=== PATIENT | male | born 1960 | race Caucasian/White ===

== ENCOUNTER → 2019-07-10 | Day surgery (SDC) | payer OTHER ==
[~2019-07-10] MED LIST: ALBU2.5V8 IH; ELBA1TAB PO; IV RINGERS,LACTATED 1000ML 1,000 ML IV SCH; LIDOCAINE 2% PF 5 ML VIAL. ONE; PROPOFOL 20 ML IV ONE
[2019-07-10 07:46] VITALS: BP 125/71
--- NOTE | 2019-07-10 09:26 | CONS ---
DATE OF CONSULTATION: 07/10/2019 GI CONSULTATION REFERRING PHYSICIAN: ____. REASON FOR CONSULTATION: Variceal screening. HISTORY OF PRESENT ILLNESS: A 59-year-old male with past medical history significant for asthma and hepatitis C, presently on Zepatier treatment, is seen for elective endoscopy to assess for varices. The patient denies any hematemesis, dysphagia, odynophagia. Weight and appetite have been stable. There is no family history of liver disease. He is otherwise without additional complaints. PAST MEDICAL HISTORY: Hep C, reactive airway disease, asthma, and tobaccoism. ALLERGIES: IBUPROFEN. MEDICATIONS: Include ProAir and Zepatier. FAMILY AND SOCIAL HISTORY: He is a former smoker and drinker. There is a family history of lung cancer. PAST SURGICAL HISTORY: Noncontributory. REVIEW OF SYSTEMS: Per records. PHYSICAL EXAMINATION: GENERAL: Reveals a well-nourished, well-developed male who is alert, cooperative, in no acute distress. VITAL SIGNS: Pulse 60, respiratory rate 16, pulse oximetry 98%. HEENT: Normocephalic, atraumatic head. Pupils and extraocular muscles are not tested. Sclerae anicteric. NECK: Supple. LUNGS: Clear. CARDIOVASCULAR: Reveals an S1, S2 without S3, S4 or appreciable murmur. ABDOMEN: Reveals a soft abdomen, normal bowel sounds, without appreciable hepatosplenomegaly. EXTREMITIES: Reveals no cyanosis, clubbing or edema. IMPRESSION AND PLAN: Hepatitis C, presently on antiviral therapy. Upper endoscopy is recommended to assess for varices. Risks and benefits have been discussed including risk of hemorrhage and perforation. The patient is willing to proceed. ANNETTE PRATT MD DR: DOMINGUEZ/lance JOB#: [id number] / [id number] ____Dr. ___
== END | disposition home or self-care (01) ==
LOC: ENDOS 05:48 → EEVIPCON 07:00
PROVIDERS: ATTEND Internal Medicine Gastroenterology
DX: I85.00 Esophageal varices without bleeding (principal); K29.50 Unspecified chronic gastritis without bleeding; B19.20 Unspecified viral hepatitis C without hepatic coma; J45.909 Unspecified asthma, uncomplicated; Z98.890 Other specified postprocedural states; Z87.891 Personal history of nicotine dependence; Z79.899 Other long term (current) drug therapy; Z88.6 Allergy status to analgesic agent
CPT/HCPCS: 43235; J2001; J2704